=== PATIENT | female | born 1980 | race Caucasian/White ===

== ENCOUNTER 2020-02-28 07:10 | Outpatient (CLI) | payer BC ==
--- NOTE | 2020-02-28 09:48 | MRI ---
MRI ABDOMEN WITH AND WITHOUT IV CONTRAST: HISTORY: Abnormal CT scan of 01/18/2020 with liver lesions and left lower quadrant pain and diarrhea. FINDINGS: Correlation is made with the CT scan of 01/18/2020. The low-density lesions in the liver noted on the CT scan (measuring up to 1.5 cm) are again seen on the MRI with T2 hyperintensity and progressive en hancement and filling on the delayed images on the post contrast images, consistent with benign heman giomas. There are tiny filling defects in the gallbladder consistent with cholelithiasis. The splee n, pancreas, adrenal glands, and kidneys are normal. No free fluid or lymphadenopathy are seen in th e abdomen. The aorta is of normal caliber. The bone marrow signal is normal. IMPRESSION: 1. Hepatic hemangiomas. 2. Cholelithiasis. POS: OFF
[2020-02-28] MEDS ORDERED: Magnevist 469MG/ML 20 ML VIAL ONE (09:56)
== END 2020-02-28 07:11 | disposition home or self-care (01) ==
LOC: BICMRI 07:10
PROVIDERS: ATTEND Internal Medicine Gastroenterology
DX: R10.32 Left lower quadrant pain (principal); R93.89 Abnormal findings on diagnostic imaging of other specified body structures; D18.03 Hemangioma of intra-abdominal structures; K80.20 Calculus of gallbladder without cholecystitis without obstruction
CPT/HCPCS: 74183; 82565; A9579